=== PATIENT | female | born 1980 | race Two or more races ===

== ENCOUNTER 2017-07-03 20:21 | Emergency (ER) | payer MEDICAID, OTHER ==
--- NOTE | 2017-07-04 00:33 | NUR ---
CALLED TO ROOM, NO RESPONSE
--- NOTE | 2017-07-04 00:45 | NUR ---
pt called to room , no response. pt left without being seen.
== END 2017-07-04 02:25 | disposition left against medical advice (07) ==
LOC: ER 20:29
DX: Z53.21 Procedure and treatment not carried out due to patient leaving prior to being seen by health care provider (principal)